=== PATIENT | female | born 1990 | race Caucasian/White ===

== ENCOUNTER 2018-02-19 19:26 | Emergency (ER) | payer OTHER ==
[~2018-02-19] VITALS: Ht 152.4 cm; Wt 72.6 kg
[2018-02-19] MEDS ORDERED: [UNRECOGNIZED DRUG - OTHER] PO (19:46)
[2018-02-19] MEDS ORDERED: PEPTO-BISMOL262 M1 (19:47)
[2018-02-19 20:01] LABS: URINE BILIRUBIN NEGATIVE (Negative); URINE BLOOD NEGATIVE (Negative); URINE CLARITY CLEAR; URINE COLOR YELLOW; URINE GLUCOSE-RANDOM* NEGATIVE (Negative); URINE KETONES NEGATIVE (Negative); URINE LEUKOCYTES-REFLEX NEGATIVE (Negative); URINE NITRITE-REFLEX NEGATIVE (Negative); URINE PROTEIN (DIPSTICK) NEGATIVE (Negative); URINE SPECIFIC GRAVITY 1.015 (1.005-1.035); URINE UROBILINOGEN 0.2 E.U./dl (0.2-1.0)
[2018-02-19 20:37] LABS: ABSOLUTE NEUTROPHILS 2.8 thou/uL (1.4-8.2); BASOPHILS 0.7 % (0.0-2.0); EOSINOPHILS 4.1 % (0.0-3.0); HEMATOCRIT 39.5 % (37.0-47.0); HEMOGLOBIN 13.2 gm/dL (12.0-15.0); LYMPHOCYTES 37.8 % (24.0-44.0); MCH 27.1 pg (26.0-34.0); MCHC 33.5 g/dL (28.0-37.0); PLATELET COUNT 225 thou/uL (150-400); POLYS 45.4 % (36.0-66.0); RBC 4.87 mil/uL (4.20-5.00); RDW 12.6 % (10.5-14.5); WBC 6.1 thou/uL (4.0-11.0)
[2018-02-19 20:50] LABS: CALCIUM 8.6 mg/dL (8.5-10.1); CREATININE 0.8 mg/dL (0.6-1.0); POTASSIUM 3.7 mmol/L (3.5-5.1)
[2018-02-19 20:53] LABS: ALBUMIN 3.7 g/dL (3.4-5.0); TOTAL BILIRUBIN 0.3 mg/dL (<0.1-1.0); TOTAL PROTEIN 7.7 g/dL (6.4-8.2)
[2018-02-19] MEDS ORDERED: BENTYL 10 MG CA10 M1 PO (22:10)
[2018-02-19 22:17] VITALS: BP 120/74
== END 2018-02-19 22:18 | disposition home or self-care (01) ==
LOC: EDBD 19:26 → ER 19:26
PROVIDERS: Physician Assistant
DX: R10.11 Right upper quadrant pain (principal); R10.13 Epigastric pain; R11.2 Nausea with vomiting, unspecified; R19.7 Diarrhea, unspecified; Z90.49 Acquired absence of other specified parts of digestive tract